=== PATIENT | female | born 1980 | race Hispanic/Latino ===

== ENCOUNTER 2018-03-09 06:53 | Emergency (ER) | payer SELFPAY ==
[~2018-03-09] VITALS: Ht 121.9 cm; Wt 63.0 kg
[~2018-03-09 06:53] MED LIST: CEPHALEXIN500 MG PO
[2018-03-09 08:06] LABS: HEMATOCRIT 38.6 % (37.0-47.0); IMMATURE GRANULOCYTES 0.5 % (0.0-1.0); MEAN CORPUSCULAR HGB 25.5 pG CALC (26.0-32.0); MEAN CORPUSCULAR HGB CONC 31.1 g/L CALC (32.0-36.0); NEUT# 6.02 thou/uL (2.00-7.15); RED BLOOD COUNT 4.71 mill/uL (4.20-5.60); RED CELL DISTRI WIDTH 15.9 % (11.5-15.5)
[2018-03-09 08:06] LABS: URINE BILIRUBIN - DIPSTICK NEGATIVE (NEGATIVE); URINE BLOOD DIPSTICK LARGE (NEGATIVE); URINE COLOR YELLOW; URINE GLUCOSE - DIPSTICK NEGATIVE (NEGATIVE); URINE KETONE NEGATIVE (NEGATIVE); URINE LEUK ESTERASE NEGATIVE (NEGATIVE); URINE PH 5.5 (4.5-8.0); URINE PROTEIN - DIPSTICK NEGATIVE (NEG-TRACE); URINE SPECIFIC GRAVITY <=1.005; URINE UROBILINOGEN - DIPSTICK 0.2 E.U./dL (0.2)
[2018-03-09 08:07] LABS: URINE CLARITY CLEAR
[2018-03-09 08:08] LABS: URINE NITRITE - DIPSTICK NEGATIVE (Negative)
[2018-03-09 08:15] LABS: URINE BACTERIA RARE hpf; URINE EPITHELIAL CELLS FEW EPI/hpf (0-FEW); URINE WBC 0-2 WBC/hpf (0-5)
[2018-03-09 08:25] LABS: ALBUMIN 3.9 g/dL (3.2-5.0); ALKALINE PHOSPHATASE 78 u/l (38-126); ANION GAP 16 (6-22 (CALC)); BILIRUBIN, TOTAL 0.3 mg/dL (0.0-1.4); BUN 9 mg/dL (7-17); BUN/CREATININE RATIO 20 (12-20 (CALC)); CARBON DIOXIDE 21 mmol/l (22-30); CHLORIDE 105 mmol/l (95-108); CREATININE 0.5 mg/dL (0.5-1.0); GFR > 60 ML/MIN (>=60 (CALC)); GFR FOR AFR.AMER. > 60 ML/MIN (>=60 (CALC)); POTASSIUM 3.9 mmol/l (3.5-5.1); SGOT/AST 18 u/l (14-36); SGPT/ALT 37 u/l (9-52); SODIUM 138 mmol/l (137-146)
[2018-03-09 09:06] LABS: BETA-HCG, QUANT(RESULT NUMBER) 87306 mIU/mL
[2018-03-09 11:03] VITALS: BP 105/70
== END 2018-03-09 11:25 | disposition home or self-care (01) | DRG 778 ==
LOC: ED 06:53
PROVIDERS: Emergency Medicine
DX: O20.0 Threatened abortion (principal); Z3A.08 8 weeks gestation of pregnancy

== ENCOUNTER 2020-05-06 10:07 | Emergency (ER) | payer SELFPAY ==
[~2020-05-06] VITALS: Ht 121.9 cm; Wt 59.0 kg
[2020-05-06 11:02] LABS: URINE BILIRUBIN - DIPSTICK NEGATIVE (NEGATIVE); URINE BLOOD DIPSTICK LARGE (NEGATIVE); URINE COLOR YELLOW; URINE GLUCOSE - DIPSTICK >=1000 mg/dL (NEGATIVE); URINE KETONE 15 mg/dL (NEGATIVE); URINE NITRITE - DIPSTICK NEGATIVE (Negative); URINE PH 6.5 (4.5-8.0); URINE PROTEIN - DIPSTICK NEGATIVE (NEG-TRACE); URINE SPECIFIC GRAVITY <=1.005; URINE UROBILINOGEN - DIPSTICK 0.2 E.U./dL (0.2)
[2020-05-06 11:04] LABS: URINE LEUK ESTERASE SMALL (NEGATIVE)
[2020-05-06 11:37] LABS: URINE BACTERIA RARE hpf; URINE RBC TNTC RBC/hpf (0-5); URINE SQUAMOUS EPITHELIAL CELL FEW EPI/hpf (0-FEW)
[2020-05-06] MEDS ORDERED: METFORMIN HCL1000 MG PO (11:46)
[2020-05-06] MEDS ORDERED: KEFLEX500 M1 PO (11:46)
[2020-05-06 11:55] VITALS: BP 119/79
== END 2020-05-06 11:55 | disposition home or self-care (01) | DRG 690 ==
LOC: ED 10:07
PROVIDERS: Student in an Organized Health Care Education/Training Program
DX: N39.0 Urinary tract infection, site not specified (principal); B96.20 Unspecified Escherichia coli [E. coli] as the cause of diseases classified elsewhere; E11.9 Type 2 diabetes mellitus without complications

== ENCOUNTER 2022-12-22 12:30 | Emergency (ER) | payer SELFPAY ==
[~2022-12-22] VITALS: Ht 121.9 cm; Wt 61.0 kg
[~2022-12-22 12:30] MED LIST changes: +KEFLEX500 M1 PO; +METFORMIN HCL1000 MG PO
[2022-12-22 15:00] LABS: URINE BILIRUBIN - DIPSTICK NEGATIVE (NEGATIVE); URINE BLOOD DIPSTICK NEGATIVE (NEGATIVE); URINE GLUCOSE - DIPSTICK >=1000 mg/dL (NEGATIVE); URINE KETONE 15 mg/dL (NEGATIVE); URINE LEUK ESTERASE NEGATIVE (NEGATIVE); URINE PH 5.5 (4.5-8.0); URINE PROTEIN - DIPSTICK NEGATIVE (NEG-TRACE); URINE UROBILINOGEN - DIPSTICK 0.2 E.U./dL (0.2)
[2022-12-22 15:02] LABS: URINE COLOR AMBER; URINE NITRITE - DIPSTICK POSITIVE (Negative)
[2022-12-22 15:12] LABS: URINE RBC 0-2 RBC/hpf (0-5); URINE SQUAMOUS EPITHELIAL CELL FEW EPI/hpf (0-FEW); URINE WBC 0-2 WBC/hpf (0-5)
[2022-12-22] MEDS ORDERED: CEPHALEXIN500 M1 PO (18:25)
[2022-12-22] MEDS ORDERED: DIFLUCAN150 MG PO (18:25)
[2022-12-22 18:28] VITALS: BP 141/89
== END 2022-12-22 18:44 | disposition home or self-care (01) | DRG 690 ==
LOC: ED 12:30
PROVIDERS: Family Medicine
DX: N39.0 Urinary tract infection, site not specified (principal); N89.8 Other specified noninflammatory disorders of vagina

== ENCOUNTER 2023-04-30 09:54 | Emergency (ER) | payer SELFPAY ==
[~2023-04-30] VITALS: Ht 121.9 cm; Wt 61.2 kg
[2023-04-30] VITALS (8 sets, daily range): BP systolic 112–131; BP diastolic 66–72
[~2023-04-30 09:54] MED LIST changes: +CEPHALEXIN500 M1 PO; +DIFLUCAN150 MG PO
[2023-04-30] MEDS ORDERED: METFORMIN500 M2 PO (10:25)
[2023-04-30 10:33] LABS: URINE BILIRUBIN - DIPSTICK NEGATIVE (NEGATIVE); URINE BLOOD DIPSTICK LARGE (NEGATIVE); URINE COLOR BLOODY; URINE GLUCOSE - DIPSTICK >=1000 mg/dL (NEGATIVE); URINE KETONE 15 mg/dL (NEGATIVE); URINE LEUK ESTERASE NEGATIVE (NEGATIVE); URINE NITRITE - DIPSTICK NEGATIVE (Negative); URINE PH 6.5 (4.5-8.0); URINE PROTEIN - DIPSTICK 30 mg/dL (NEG-TRACE); URINE UROBILINOGEN - DIPSTICK 0.2 E.U./dL (0.2)
[2023-04-30 10:41] LABS: URINE EPITHELIAL CELLS FEW EPI/hpf (0-FEW); URINE RBC TNTC RBC/hpf (0-5); URINE WBC 0-2 WBC/hpf (0-5)
== END 2023-04-30 13:03 | disposition home or self-care (01) | DRG 833 ==
LOC: ED 09:54
PROVIDERS: Family Medicine
DX: O20.0 Threatened abortion (principal); Z3A.00 Weeks of gestation of pregnancy not specified